=== PATIENT | male | born 1955 | race Caucasian/White ===

== ENCOUNTER 2022-06-15 07:42 | Emergency (ER) | payer MEDICAID, MEDICARE ==
--- NOTE | 2022-06-15 07:52 | ED Physician Documentation ---
PD HPI MALE - Stated complaint Stated Complaint: MALE - History obtained from History obtained from: Patient - History of Present Illness Timing - onset: How many days ago (8) Timing - duration: Days (6) Timing - details: Abrupt onset, Still present Associated symptoms: Unable to urinate, Back pain, Other (vomiting) PD HPI MALE CONTRIB FACTORS: Not sexually active Similar symptoms before: Has not had sx before Recently seen: Not recently seen - Additional information Additional information: Jayce Jj is a 66-year-old male with a long smoking history who quit smoking 8 days ago. He indicates that he was having more problem with cough and shortness of breath when he discontinued smoking. He has an aversion to smoking now and feels that he has quit. He has never quit previously. He developed nausea and vomiting the day after he quit and he continues to have nausea. He has been able to hold down fluids he has not been able to hold down food. He complains of a weak urinary stream with thick urine. He believes he is drinking lots of fluid. Review of Systems Constitutional: reports: Myalgias, Fatigue, Sweats. denies: Fever Eyes: denies: Decreased vision Ears: denies: Ear pain Nose: reports: Rhinorrhea / runny nose, Congestion Throat: denies: Sore throat Cardiac: denies: Chest pain / pressure, Palpitations Respiratory: reports: Dyspnea, Cough GI: reports: Nausea, Vomiting. denies: Abdominal Pain : reports: Unable to Void. denies: Dysuria, Frequency Skin: denies: Rash, Lesions Musculoskeletal: reports: Back pain. denies: Neck pain, Extremity pain Neurologic: denies: Generalized weakness, Focal weakness, Numbness PD PAST MEDICAL HISTORY - Present Medications Home Medications: Ambulatory Orders Medication Instructions Recorded Confirmed Albuterol Sulf [Ventolin Hfa 1 - 2 puffs INH Q4HR PRN #1 each 06/15/22 Inhaler] Amox/Clav 875/125 [Augmentin] 1 each PO Q12H #20 tablet 06/15/22 Azithromycin [Zithromax] 250 mg PO DAILY #6 tablet 06/15/22 predniSONE [Deltasone] 10 mg PO ONCE #26 tablet 06/15/22 - Allergies Allergies/Adverse Reactions: Allergies Allergy/AdvReac Type Severity Reaction Status Date / Time No Known Drug Allergies Allergy Verified 03/03/23 07:57 PD ED PE NORMAL - Vitals Vital signs reviewed: Yes (hypertensive mild borderline dyspnea) - General General: Alert and oriented X 3, No acute distress, Well developed/nourished - HEENT HEENT: Atraumatic, PERRL, EOMI - Neck Neck: Supple, no meningeal sign, No bony TTP - Cardiac Cardiac: RRR, No murmur - Respiratory Respiratory: Other (tachypneic at rest with bibasilar and RUL rhonchi) - Abdomen Abdomen: Soft, Non tender, Other (obese) - Back Back: No CVA TTP, No spinal TTP - Derm Derm: Normal color, Warm and dry, No rash - Extremities Extremities: No deformity, No edema - Neuro Neuro: Alert and oriented X 3, 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, No motor deficit, No sensory deficit, Normal speech Eye Opening: Spontaneous Motor: Obeys Commands Verbal: Oriented GCS Score: 15 - Psych Psych: Normal mood, Normal affect Results - Vitals Vitals: Vital Signs - 24 hr 06/15/22 06/15/22 06/15/22 07:54 08:17 10:13 Temperature 36.5 C Heart Rate 75 71 86 Respiratory 23 26 H 22 Rate Blood Pressure 120/89 H 127/96 H O2 Saturation 94 90 L 92 06/15/22 12:09 Temperature Heart Rate 97 Respiratory 20 Rate Blood Pressure O2 Saturation Oxygen O2 Source Room air - Labs Labs: Laboratory Tests 06/15/22 06/15/22 06/15/22 08:12 08:12 08:12 WBC 10.7 RBC 4.35 L Hgb 12.8 L Hct 39.1 L MCV 89.9 MCH 29.4 MCHC 32.7 RDW 14.5 Plt Count 296 MPV 8.7 Neut # (Auto) 8.7 H Lymph # (Auto) 1.0 L [place] # (Auto) 1.0 Eos # (Auto) 0.0 Baso # (Auto) 0.0 Absolute Nucleated RBC 0.00 Nucleated RBC % 0.0 Sodium 128 L Potassium 3.7 Chloride 91 L Carbon Dioxide 28 Anion Gap 9.0 BUN 13 Creatinine 0.7 Estimated GFR (MDRD) 113 Glucose 120 H Lactic Acid 0.6 Calcium 8.9 Total Bilirubin 0.8 AST 39 ALT 48 Alkaline Phosphatase 84 Total Protein 7.9 Albumin 3.5 Globulin 4.3 H Albumin/Globulin Ratio 0.8 L Lipase 37 Urine Color Urine Clarity Urine pH Ur Specific [place] Urine Protein Urine Glucose (UA) Urine Ketones Urine Occult Blood Urine Nitrite Urine Bilirubin Urine Urobilinogen Ur Leukocyte Esterase Urine RBC Urine WBC Ur Epithelial Cells Ur Squamous Epith Cells Amorphous Sediment Urine Bacteria Urine Casts Urine Mucus Ur Microscopic Review Urine Culture Comments Nasal Adenovirus (PCR) Nasal B. parapertussis DNA (PCR) Nasal Coronavir 229E PCR Nasal Coronavir HKU1 PCR Nasal Coronavir NL63 PCR Nasal Coronavir OC43 PCR Nasal Enterovir/Rhinovir PCR Nasal Influenza B PCR Nasal Influenza A PCR Nasal Parainfluen 1 PCR Nasal Parainfluen 2 PCR Nasal Parainfluen 3 PCR Nasal Parainfluen 4 PCR Nasal RSV (PCR) Nasal B.pertussis DNA PCR Nasal C.pneumoniae (PCR) Alhaji Human Metapneumo PCR Nasal M.pneumoniae (PCR) Nasal SARS-CoV-2 (PCR) 06/15/22 06/15/22 08:12 09:18 WBC RBC Hgb Hct MCV MCH MCHC RDW Plt Count MPV Neut # (Auto) Lymph # (Auto) [place] # (Auto) Eos # (Auto) Baso # (Auto) Absolute Nucleated RBC Nucleated RBC % Sodium Potassium Chloride Carbon Dioxide Anion Gap BUN Creatinine Estimated GFR (MDRD) Glucose Lactic Acid Calcium Total Bilirubin AST ALT Alkaline Phosphatase Total Protein Albumin Globulin Albumin/Globulin Ratio Lipase Urine Color DARK YELLOW Urine Clarity CLEAR Urine pH 6.0 Ur Specific [place] >=1.030 H Urine Protein 100 H Urine Glucose (UA) 100 H Urine Ketones NEGATIVE Urine Occult Blood SMALL H Urine Nitrite NEGATIVE Urine Bilirubin NEGATIVE Urine Urobilinogen >=8.0 H Ur Leukocyte Esterase NEGATIVE Urine RBC 0-5 Urine WBC 6-10 H Ur Epithelial Cells FEW Renal Tubular Ur Squamous Epith Cells FEW Squamous Amorphous Sediment Few Urine Bacteria Many H Urine Casts 26-50 Cellular Casts Urine Mucus Marked Strands Ur Microscopic Review INDICATED Urine Culture Comments NOT INDICATED Nasal Adenovirus (PCR) NOT DETECTED Nasal B. parapertussis DNA (PCR) NOT DETECTED Nasal Coronavir 229E PCR NOT DETECTED Nasal Coronavir HKU1 PCR NOT DETECTED Nasal Coronavir NL63 PCR NOT DETECTED Nasal Coronavir OC43 PCR NOT DETECTED Nasal Enterovir/Rhinovir PCR NOT DETECTED Nasal Influenza B PCR NOT DETECTED Nasal Influenza A PCR NOT DETECTED Nasal Parainfluen 1 PCR NOT DETECTED Nasal Parainfluen 2 PCR NOT DETECTED Nasal Parainfluen 3 PCR NOT DETECTED Nasal Parainfluen 4 PCR NOT DETECTED Nasal RSV (PCR) NOT DETECTED Nasal B.pertussis DNA PCR NOT DETECTED Nasal C.pneumoniae (PCR) NOT DETECTED Alhaji Human Metapneumo PCR NOT DETECTED Nasal M.pneumoniae (PCR) NOT DETECTED Nasal SARS-CoV-2 (PCR) NOT DETECTED - Rads (name of study) chest Radiology: Prelim report reviewed (Impression: Dense right upper lobe pneumonia. Progress films are recommended until clear.), EMP read indepedently, See rad report Procedures - Bedside sono Bedside sono by EMP: With use of POCUS the bladder is examined at the bedside and there is urine in the bladder does not look overly distended. - IVC sono (time) 0800 Bedside IVC sono: IVC measures (cm) (1.91), Euvolemia PD Medical Decision Making - ED course Complexity details: reviewed results, re-evaluated patient, considered differential, d/w patient Reviewed Lab Results: Revealed a complete blood count with a normal white blood cell count and normal nearly normal hemoglobin hematocrit normal platelets. Chemistries were remarkable for serum sodium of 128 lactate was normal at 0.6 urine was remarkable for significant concentration and presence of protein and glucose a nasal smear was negative for the viruses tested. ED course: 66-year-old Jayce Has a persistent cough and congestion and feels like he has pneumonia. On examination he has some focal rhonchi in the right upper lobe and a corresponding infiltrate seen on his chest x-ray. He is treated for this with intravenous Rocephin and azithromycin as well as dexamethasone zone and a DuoNeb treatment. He responded well to all of this treatment. Departure - Departure Disposition: 01 Home, Self Care Clinical Impression: Dehydration Pneumonia Qualifiers: Pneumonia type: due to unspecified organism Laterality: right Lung location: upper lobe of lung Qualified Code(s): J18.9 - Pneumonia, unspecified organism Condition: Stable Instructions: ED Pneumonia Adult Follow-Up: Artur Diaz MD [Primary Care Provider] - Prescriptions: Albuterol Sulf [Ventolin Hfa Inhaler] 1 - 2 puffs INH Q4HR PRN #1 each PRN Reason: Shortness Of Air/Wheezing Amox/Clav 875/125 [Augmentin] 1 each PO Q12H #20 tablet predniSONE [Deltasone] 10 mg PO ONCE #26 tablet Azithromycin [Zithromax] 250 mg PO DAILY #6 tablet Comments: Jayce , today you have pneumonia and there is some reactive airway disease associated with this. I have E scribed the antibiotic, the inhaler and the anti- inflammatory steroid to the [facility] in [place]. Our expectations with treatment is continued improvement until resolution. Follow-up with your primary care doctor when you return home. Discharge Date/Time: 06/15/22 12:55
[2022-06-15] MEDS ORDERED: ONDANSETRON 4 MG/2 ML VIAL IVP STA (08:06)
[2022-06-15] MEDS ORDERED: SODIUM CHLORIDE 0.9% 1,000 ML IV STA (08:06)
[2022-06-15 08:18] LABS: BASOPHILS % (AUTO) 0.2 %; EOSINOPHILS % (AUTO) 0.1 %; HCT - HEMATOCRIT 39.1 % (42.0-52.0); HGB - HEMOGLOBIN 12.8 g/dL (14.0-18.0); LYMPHOCYTES % (AUTO) 8.9 %; MEAN CORPUSCULAR HEMOGLOBIN 29.4 pg (27.0-31.0); MEAN CORPUSCULAR HGB CONC 32.7 g/dL (32.0-36.0); MEAN CORPUSCULAR VOLUME 89.9 fL (80.0-94.0); MEAN PLATELET VOLUME 8.7 fL (7.4-11.4); MONOCYTES % (AUTO) 9.2 %; NEUTROPHILS # (AUTO) 8.7 10^3/uL (1.5-6.6); NEUTROPHILS % (AUTO) 81.2 %; PLT - PLATELET COUNT 296 10^3/uL (130-450); RED BLOOD COUNT 4.35 10^6/uL (4.70-6.10); RED CELL DISTRIBUTION WIDTH 14.5 % (12.0-15.0); WHITE BLOOD COUNT 10.7 x10^3/uL (4.8-10.8)
[2022-06-15 08:19] VITALS: BP 127/96
[2022-06-15 08:32] LABS: ALBUMIN 3.5 g/dL (3.2-5.5); ALBUMIN/GLOBULIN RATIO 0.8 (1.0-2.2); BILIRUBIN,TOTAL 0.8 mg/dL (0.2-1.0); CALCIUM 8.9 mg/dL (8.5-10.3); CREATININE 0.7 mg/dL (0.6-1.2); POTASSIUM 3.7 mmol/L (3.5-5.0); TOTAL PROTEIN 7.9 g/dL (6.7-8.2)
--- NOTE | 2022-06-15 08:54 | XRAY Report ---
PROCEDURE: Chest 2 View X-Ray INDICATIONS: cough rhonchi TECHNIQUE: 2 views of the chest were acquired. COMPARISON: None. FINDINGS: Surgical changes and devices: None. Lungs and pleura: No pleural effusions or pneumothorax. Dense right upper lobe pneumonia. Mediastinu m: Mediastinal contours are normal. Heart size is normal. Bones and chest wall: No suspicious bony abnormalities. Soft tissues appear unremarkable. IMPRESSION: Dense right upper lobe pneumonia. Progress films are recommended until clear. Reviewed by: Giancarlo Pelayo MD on 06/15/2022 8:53 AM PST Approved by: Giancarlo Pelayo MD on 06/15/2022 8:53 AM PST Station ID: [id number]
[2022-06-15] MEDS ORDERED: AZITHROMYCIN INJ 500 MG in SODIUM CHLORIDE 0.9% 250 ML IV STA (08:58)
[2022-06-15] MEDS ORDERED: cefTRIAXone 1 GM in SODIUM CHLORIDE 0.9% MINIBAG 100 ML IV STA (08:58)
[2022-06-15 09:28] LABS: GLUCOSE, URINE (UA) 100 mg/dL (NEGATIVE); KETONES,URINE (UA) NEGATIVE (NEGATIVE); LEUKOCYTE ESTERASE, URINE NEGATIVE (NEGATIVE); NITRITE,URINE NEGATIVE (NEGATIVE); OCCULT BLOOD,URINE SMALL (NEGATIVE); PROTEIN,URINE 100 mg/dL (NEGATIVE); UROBILINOGEN,URINE >=8.0 E.U./dL (NORMAL)
[2022-06-15 09:33] LABS: B. PARAPERTUSSIS- RESP PCR PAN NOT DETECTED; B. PERTUSSIS- RESP PCR PANEL NOT DETECTED; C. PNEUMONIAE- RESP PCR PANEL NOT DETECTED; CORONAVIRUS 229E-RESP PCR NOT DETECTED; CORONAVIRUS HKU1-RESP PCR NOT DETECTED; CORONAVIRUS NL63-RESP PCR NOT DETECTED; CORONAVIRUS OC43-RESP PCR NOT DETECTED; HUMAN METAPNEUMOVIRUS NOT DETECTED; INFLUENZA A- RESP PCR PANEL NOT DETECTED; INFLUENZA B - RESP PCR PANEL NOT DETECTED; M. PNEUMONIAE- RESP PCR PANEL NOT DETECTED; PARAINFLUENZA VIRUS 1 NOT DETECTED; PARAINFLUENZA VIRUS 2 NOT DETECTED; PARAINFLUENZA VIRUS 3 NOT DETECTED; PARAINFLUENZA VIRUS 4 NOT DETECTED; RHINOVIRUS/ENTEROVIRUS NOT DETECTED; RSV- RESP PCR PANEL NOT DETECTED; SARS-CoV-2 -RESP PCR PANEL NOT DETECTED
[2022-06-15 09:38] LABS: CLARITY,URINE CLEAR (CLEAR)
[2022-06-15 09:41] LABS: BILIRUBIN,URINE NEGATIVE (NEGATIVE); ICTOTEST,URINE NEGATIVE
[2022-06-15 09:46] LABS: AMORPHOUS SEDIMENT,UR Few /LPF; BACTERIA,URINE Many /HPF (None Seen); EPITHELIAL CELLS,UR FEW Renal Tubular /HPF (<= Few); MUCUS,URINE Marked Strands; RBC,URINE 0-5 /HPF (0-5); SQUAMOUS EPITHELIAL CELL,UR FEW Squamous (<= Few)
[2022-06-15] MEDS ORDERED: DEXAMETHASONE 10 MG/ML VIAL IVP STA (11:49)
[2022-06-15] MEDS ORDERED: IPRATROPIUM/ALBUTEROL 3 ML NEB INH STA (11:49)
== END 2022-06-15 12:55 | disposition home or self-care (01) ==
LOC: ED 07:42
DX: J18.9 Pneumonia, unspecified organism (principal); Z20.822 Contact with and (suspected) exposure to COVID-19
CPT/HCPCS: 36415; 80053; 81001; 81003; 83605; 83690; 85025; 87086; 87633; 94640; 94664; 96365; 96367; 96375; 99284

== ENCOUNTER 2023-12-23 07:08 | Outpatient (CLI) | payer MEDICARE | END 2023-12-23 07:09 | disposition home or self-care (01) | LOC: LAB.S 07:08 | PROVIDERS: ATTEND Registered Nurse Registered Nurse First Assistant | DX: Z95.2 Presence of prosthetic heart valve (principal) | CPT/HCPCS: 36416; 85610 ==

== ENCOUNTER 2024-01-01 07:03 | Outpatient (CLI) | payer MEDICARE | END 2024-01-01 07:04 | disposition home or self-care (01) | LOC: LAB.S 07:03 | PROVIDERS: ATTEND Registered Nurse Registered Nurse First Assistant | DX: Z09 Encounter for follow-up examination after completed treatment for conditions other than malignant neoplasm (principal); Z95.2 Presence of prosthetic heart valve | CPT/HCPCS: 36416; 85610 ==

== ENCOUNTER 2024-01-06 07:29 | Outpatient (CLI) | payer MEDICARE | END 2024-01-06 07:30 | disposition home or self-care (01) | LOC: LAB.S 07:29 | PROVIDERS: ATTEND Registered Nurse Registered Nurse First Assistant | DX: Z09 Encounter for follow-up examination after completed treatment for conditions other than malignant neoplasm (principal); Z95.2 Presence of prosthetic heart valve | CPT/HCPCS: 36416; 85610 ==

== ENCOUNTER 2024-01-10 07:03 | Outpatient (CLI) | payer MEDICARE | END 2024-01-10 07:04 | disposition home or self-care (01) | LOC: LAB.S 07:03 | PROVIDERS: ATTEND Registered Nurse Registered Nurse First Assistant | DX: Z09 Encounter for follow-up examination after completed treatment for conditions other than malignant neoplasm (principal); Z95.2 Presence of prosthetic heart valve | CPT/HCPCS: 36416; 85610 ==